=== PATIENT | male | born 1990 | race Caucasian/White ===

== ENCOUNTER 2024-09-15 09:44 | Emergency (ER) | payer OTHER, SELFPAY ==
[2024-09-15 09:48] VITALS: BP 147/85; PULSE 114; TEMP 37.2; O2SAT 98; BMI 21.8
--- NOTE | 2024-09-15 09:58 | XR_ITS ---
[address] [address] Patient Name: STACY TREVINO MRN: [id number] date: 1990 Sex: M Assigned Patient Location: ER Current Patient Location: ED.MAIN Accession/Order Number: [id number] Exam Date: 09/15/2024 10:34 Report Date: 09/15/2024 10:35 At the request of: VALENTIN COELHO MD Procedure: XR hand LT min 3V XR hand LT min 3V 09/15/2024 10:19 AM SIGNS AND SYMPTOMS: ^crushing injury for 2,3,4 fingers PROTOCOL: Frontal, lateral, and oblique radiographs of the left hand COMPARISON: None FINDINGS: There is an obliquely oriented fracture through the distal phalanx of the third digit without intra-articular extension. This is minimally displaced. There is accompanying soft tissue swelling. No additional fractures. Joint spaces are preserved. No dislocation or subluxation. XR/XR hand LT min 3V IMPRESSION: There is an obliquely oriented fracture through the distal phalanx of the third digit without intra-articular extension. This is minimally displaced. There is accompanying soft tissue swelling. Impression dictated by: Chester Pino M.D. 09/15/2024 10:35 AM Dictation Location: [place] [address] Electronically authenticated by: [id number] Y Date: 09/15/2024 10:35
[2024-09-15] MEDS: KETOROLAC TROMETHAMINE 30 MG/ML VIAL IM (10:22)
[2024-09-15] MEDS: ADACEL DIPH,PERTUSS(ACELL),TET VAC/PF 0.5 ML ADULT SYRINGE IM (10:22)
--- NOTE | 2024-09-15 11:08 | ED_ITS ---
HPI HPI - Extremity Injury (Upper) General Chief Complaint: Extremity Injury, Upper Stated Complaint: LACERATION ON L HAND [facility] Time Seen by Provider: 09/15/24 09:51 Source: patient Mode of arrival: walk-in History of Present Illness HPI narrative: The patient is coming to us with a work injury. Apparently he was trying to lift a trailer when it fell in his left hand causing crushing to the left 2nd, 3rd and 4th finger .patient severe pain He does not remember the last time he had a tetanus booster Related Data Previous Rx's ?Medication ?Instructions ?Recorded cephalexin 500 mg capsule 500 mg PO Q8H 7 days #21 cap s 09/15/24 diclofenac sodium 75 mg 75 mg PO Q12H PRN pain #20 t abs 09/15/24 tablet,delayed release oxycodone-acetaminophen 5 mg-325 1 tab PO Q8H PRN pain 3 days #9 09/15/24 mg tablet (Percocet) tabs Allergies Allergy/AdvReac Type Severity Reaction Status Date / Time No Known Drug Allergies Allergy Verified 09/15/24 09:52 Opioid HPI Opioid Management Most Recent Pain and Opioid Data: Last Pain Scale 7 Today, 11:13 Last MAR Pain Assessment Today, 10:22 Review of Systems ROS Status of ROS 10 or more systems reviewed and unremark able except as noted in history and below PFSH PFSH Social History Little interest or pleasure in doing things: not at all Feeling down, depressed, or hopeless: not at all Exam Narrative Exam Narrative: Nurses notes and vital signs reviewed and patient is not hypoxic. General: Well-appearing and in no apparent distress. Skin: Warm, dry, no pallor noted. No rash. Left hand examination; the patient have a contusion to the distal phalanx of the middle finger that is very obvious with some abrasion and bleeding that is controlled at the distal phalanx, there is almost 1/3 of the nailbed of that finger have a subungual hematoma, and the there is no obvious open wound except for the abrasion at the side of the finger mostly medially, small contusion to the dorsum of the distal phalanx of the third and the fourth fingers, no obvious ecchymosis Capillary fill is normal and there is no vascular injury detected otherwise Neurological: A&O x4. No cranial nerve dysfunction observed. No truncal ataxia. Moves all extremities. Sensation intact. Psychiatric: Cooperative and interactive. Normal mood and affect. Constitutional Vital Signs, click to edit/add: Last Vital Signs Temp 99.0 F 09/15/24 09:48 Pulse 114 H 09/15/24 09:48 Resp 18 09/15/24 09:48 BP 147/85 H 09/15/24 09:48 Pulse Ox 98 09/15/24 09:48 O2 Del Method Room Air 09/15/24 09:48 Course Vital Signs Vital signs: Vital Signs Temperature 99.0 F 09/15/24 09:48 Pulse Rate 114 H 09/15/24 09:48 Respiratory Rate 18 09/15/24 09:48 Blood Pressure 147/85 H 09/15/24 09:48 Pulse Oximetry 98 09/15/24 09:48 Oxygen Delivery Method Room Air 09/15/24 09:48 Temperature 99.0 F 09/15/24 09:48 Pulse Rate 114 H 09/15/24 09:48 Respiratory Rate 18 09/15/24 09:48 Blood Pressure 147/85 H 09/15/24 09:48 Pulse Oximetry 98 09/15/24 09:48 Oxygen Delivery Method Room Air 09/15/24 09:48 MDM - Extremity Injury (Upper) MDM Narrative Medical decision making narrative: X-ray of the patient's left hand showed that he have nonarticular oblique fracture of the distal phalanx with a mild displacement The patient had a finger splint applied Tetanus booster Provided with Keflex for antibiotic prophylaxis The patient was referred to orthopedic as outpatient Patient provided with a Percocet for pain because of severe pain in the ER after being provided with the Toradol Discharged home with Percocet for the next 3 days in addition to Voltaren for pain The patient is to follow up with primary care physician in next 2-3 days or to return to the emergency department should any of the signs or symptoms worsen or new symptoms develop. The patient agrees with the following Diagnosis and Treatment plan and the patient will be discharged home. Discharge Plan Discharge Chief Complaint: Extremity Injury, Upper Clinical Impression: Fracture of distal phalanx of finger, Contusion of finger, left Patient Disposition: Home, Self-Care Time of Disposition Decision: 11:06 Condition: Good Prescriptions / Home Meds: New cephalexin 500 mg capsule 500 mg PO Q8H 7 Days Qty: 21 0RF oxycodone-acetaminophen [Percocet] 5-325 mg tablet 1 tab PO Q8H PRN (Reason: pain) 3 Days Qty: 9 0RF diclofenac sodium 75 mg tablet,delayed release (DR/EC) 75 mg PO Q12H PRN (Reason: pain) Qty: 20 0RF Print Language: [place] Instructions: Finger Fracture (ED) Referrals: Cam Nieto MD [Primary Care Provider, Family Practice] - 1 week Tyrese Lange MD [Physician, Orthopedics] - 1 week Discharge Date/Time: 09/15/24 11:16
[2024-09-15] MEDS: OXYCODONE HCL/ACETAMINOPHEN 5MG/325MG 1 TAB PO (11:13)
== END 2024-09-15 11:16 | disposition home or self-care (01) ==
PROVIDERS: Emergency Provider Emergency Medicine; PCP Family Medicine
DX: S62.633A Displaced fracture of distal phalanx of left middle finger, initial encounter for closed fracture (principal); S60.042A Contusion of left ring finger without damage to nail, initial encounter; S60.032A Contusion of left middle finger without damage to nail, initial encounter; W23.0XXA Caught, crushed, jammed, or pinched between moving objects, initial encounter; Z23 Encounter for immunization
CPT/HCPCS: 73130; 90471; 90715; 96372; 99284; J1885